=== PATIENT | male | born 2000 | race Caucasian/White ===

== ENCOUNTER 2020-12-13 23:55 | Emergency (ER) | payer BC ==
[2020-12-14] MEDS ORDERED: Acetaminophen 500 MG TAB ONE (00:51)
== END 2020-12-14 01:48 | disposition home or self-care (01) ==
LOC: ERS 23:55
DX: S06.0X0A Concussion without loss of consciousness, initial encounter (principal); W22.8XXA Striking against or struck by other objects, initial encounter; Y99.0 Civilian activity done for income or pay
CPT/HCPCS: 70450; 72125

== ENCOUNTER 2022-09-30 08:44 | Day surgery (SDC) | payer BC ==
[2022-09-29 14:18] VITALS: BMI 23.7
[2022-09-30] MEDS ORDERED: Oxymetazoline HCl 0.05% (30 ML BOT) ONE ×2 (09:29→09:35)
[2022-09-30] MEDS ORDERED: Lidocaine 1% (PF) 30 ML VIAL ONE (09:29)
[2022-09-30] MEDS ORDERED: EPINEPHrine 1 MG/ML AMP ONE (09:29)
[2022-09-30] MEDS ORDERED: Midazolam HCl 2 mg/2 ml Vial ONE ×2 (09:48→09:52)
[2022-09-30] MEDS ORDERED: Fentanyl 250 MCG/5 ML VIAL ONE (09:52)
[2022-09-30] MEDS ORDERED: PROPOFOL 200 MG/20 ML VIAL ONE (10:02)
[2022-09-30] MEDS ORDERED: Dexamethasone 20 MG/5 ML VIAL ONE (10:02)
[2022-09-30] MEDS ORDERED: Ondansetron PF 4 MG/2 ML Vial ONE (10:02)
[2022-09-30] MEDS ORDERED: Lidocaine 1% PF 5 ML VIAL ONE (10:02)
[2022-09-30] MEDS ORDERED: Acetaminophen 325 MG TAB ONE (11:48)
== END 2022-09-30 12:00 | disposition home or self-care (01) ==
LOC: SDC 08:44
PROVIDERS: ATTEND Otolaryngology Plastic Surgery within the Head & Neck
PROC: 09SM0ZZ Reposition Nasal Septum, Open Approach (ICD-10-PCS; principal; 2022-09-30)
PROC: 095L0ZZ Destruction of Nasal Turbinate, Open Approach (ICD-10-PCS; principal; 2022-09-30)
PROC: 0NSB34Z Reposition Nasal Bone with Internal Fixation Device, Percutaneous Approach (ICD-10-PCS; principal; 2022-09-30)
DX: J34.2 Deviated nasal septum (principal); J34.3 Hypertrophy of nasal turbinates; S02.2XXA Fracture of nasal bones, initial encounter for closed fracture; J34.89 Other specified disorders of nose and nasal sinuses; Z79.899 Other long term (current) drug therapy; Z88.4 Allergy status to anesthetic agent; W50.0XXA Accidental hit or strike by another person, initial encounter; Y99.0 Civilian activity done for income or pay
CPT/HCPCS: J0171; J1100; J2001; J2250; J2405; J2704; J3010

== ENCOUNTER 2023-03-30 06:14 | Emergency (ER) | payer BC | END 2023-03-30 06:45 | LOC: ERS 06:14 | DX: F10.129 Alcohol abuse with intoxication, unspecified (principal) | CPT/HCPCS: 36415; 99283 ==